=== PATIENT | male | born 1980 ===

== ENCOUNTER 2019-04-26 15:51 | Emergency (ER) | payer SELFPAY ==
--- NOTE | 2019-04-26 16:24 | Event Note ---
ED Screening Note Date of service: 04/26/19 Time: 16:20 ED Screening Note: 38 y o male presents to ED cc of vomitting, URI and lower back pain x 2 days This initial assessment/diagnostic orders/clinical plan/treatment(s) is/are subject to change based on patients health status, clinical progression and re- assessment by fellow clinical providers in the ED. Further treatment and workup at subsequent clinical providers discretion. Patient/guardian urged not to elope from the ED as their condition may be serious if not clinically assessed and managed. Initial orders include: ua,cxr
--- NOTE | 2019-04-26 17:01 | XRay Report ---
CHEST 2 VIEWS INDICATION / CLINICAL INFORMATION: cough. COMPARISON: None available. FINDINGS: SUPPORT DEVICES: None. HEART / MEDIASTINUM: No significant abnormality. LUNGS / PLEURA: No significant pulmonary or pleural abnormality. .No pneumothorax. ADDITIONAL FINDINGS: No significant additional findings. IMPRESSION: 1. No acute findings. Signer Name: Abiel Orourke MD Signed: 04/26/2019 4:56 PM Workstation Name: [id number]
[2019-04-26 17:30] LABS: Bilirubin,Urine NEG (Negative); Blood,Urine SM (Negative); Color,Urine Yellow (Yellow); Protein,Urine <15 mg/dL mg/dL (Negative); Urobilinogen,Urine < 2.0 mg/dL (<2.0)
--- NOTE | 2019-04-26 17:39 | Emergency Department Report ---
Minor Respiratory - HPI Chief Complaint: Upper Respiratory Infection Stated Complaint: VOMITING/DROWSINESS/BACK PAIN Time Seen by Provider: 04/26/19 16:20 Duration: 3 Days Pain Location: Throat, Nose Severity: mild Minor Respiratory: Yes Rhinorrhea, Yes Able to Tolerate Fluids, No Sore Throat, No Ear Pain, No Cough, No Sick Contacts, No Hemoptysis, No Chest Pain, No Sh ortness of Breath, No Fever Other History: 38 yo otherwise healthy male to ER with runny nose and malaise. sent from work. denies n/v/d. asking for work note ED Review of Systems ROS: Stated complaint: VOMITING/DROWSINESS/BACK PAIN Other details as noted in HPI Comment: All other systems reviewed and negative ED Past Medical Hx - Past Medical History Previous Medical History?: No - Surgical History Past Surgical History?: No - Social History Smoking Status: Current Some Day Smoker - Medications Home Medications: Home Medications Medication Instructions Recorded Confirmed Last Taken Type Cetirizine HCl [ZyrTEC] 10 mg PO DAILY #30 capsule 04/26/19 Unknown Rx Fluticasone [Flonase] 1 spray NS QDAY #1 bottle 04/26/19 Unknown Rx predniSONE [Deltasone] 20 mg PO DAILY #5 tablet 04/26/19 Unknown Rx Minor Respiratory Exam - Exam General: Vital signs noted. No distress. Alert and acting appropriately. HEENT: Yes Pharyngeal Erythema, Yes Moist Mucous Membranes, Yes Rhinorrhea, No Pharyngeal Exudates, No Conjuctival Injection, No Frontal Tenderness, No Maxillary Tenderness Ear: Neither TM Bulge, Neither TM Erythema, Neither EAC Pain, Neither EAC Discharge Neck: Yes Supple, No Adenopathy Lungs: Yes Good Air Exchange, No Wheezes, No Ronchi Heart: Yes Regular Abdomen: No Tenderness Skin: No Rash Neurologic: Alert and oriented, no deficits. Musculoskeletal: Unremarkable. ED Course Vital Signs 04/26/19 16:19 Temperature 98.2 F Pulse Rate 79 Respiratory 18 Rate Blood Pressure 123/78 O2 Sat by Pulse 100 Oximetry ED Medical Decision Making - Radiology Data Radiology results: report reviewed, image reviewed - Medical Decision Making pt got ill at work they told him to go to ER he co runny nose and fatigue xray neg simple uri wants a note to go back to work tomorrow. vss no fever non toxic taking po ambulatory Vital Signs 04/26/19 16:19 Temperature 98.2 F Pulse Rate 79 Respiratory 18 Rate Blood Pressure 123/78 O2 Sat by Pulse 100 Oximetry Critical care attestation.: If time is entered above; I have spent that time in minutes in the direct care of this critically ill patient, excluding procedure time. ED Disposition Clinical Impression: Sinusitis Disposition: DC-01 TO HOME OR SELFCARE Is pt being admited?: No Does the pt Need Aspirin: No Condition: Stable Instructions: Sinusitis (ED) Additional Instructions: hydrate well with water motrin or tylenol for pain or aches meds as ordered today follow up pcp this week referral below Referrals: [facility] [Outside] - 3-5 Days Forms: Work/School Release Form(ED) Time of Disposition: 17:38
[2019-04-26 18:23] VITALS: BP 124/74
== END 2019-04-26 18:30 | disposition home or self-care (01) ==
LOC: ED 15:51
DX: J32.9 Chronic sinusitis, unspecified (principal); F17.200 Nicotine dependence, unspecified, uncomplicated; Z79.899 Other long term (current) drug therapy
CPT/HCPCS: 71046; 81001; 99283

== ENCOUNTER 2019-08-03 14:53 | Emergency (ER) | payer SELFPAY ==
[2019-08-03 15:22] VITALS: BP 123/74
--- NOTE | 2019-08-03 15:26 | Emergency Department Report ---
Blank Doc - Documentation Documentation: 38-year-old male that presents with right facial abscess. This initial assessment/diagnostic orders/clinical plan/treatment(s) is/are subject to change based on patient's health status, clinical progression and re- assessment by fellow clinical providers in the ED. Further treatment and workup at subsequent clinical providers discretion. Patient/guardians urged not to elope from the ED as their condition may be serious if not clinically assessed and managed. Initial orders include: 1- Patient sent to [facility] for further evaluation and treatment
[2019-08-03] MEDS ORDERED: LIDOCAINE-MPF (1%) 10 MG/1 ML VIAL 5 ML INFILTRATI ONE (17:30)
--- NOTE | 2019-08-03 17:30 | Emergency Department Report ---
Abscess Boil HPI - HPI Chief Complaint: Skin/Abscess/Foreign Body Stated Complaint: POSS SPIDER BITE ON R EAR Time Seen by Provider: 08/03/19 15:25 Duration: 2 Days Location: Other (face below right earlobe) Severity: Mild History: Yes Pain (2/10 at abscess site), Yes Previous History, No Fever, No Purulent Drainage, No Numbness, No Foreign Body, No Insect Bite HPI: This is 38-year-old male who reports that he has had redness and swelling to area just below her right earlobe 2 days that is painful at 2/10 and achy. He has had previous episode of different area. Denies any insect bite. Denies any fever or chills or nausea or vomiting. Denies any ear pain or sore throat. Denies any headache. Denies any medical history. Tetanus shot earlier this year in August [facility] Home Medications: Previous Rx's Medication Instructions Recorded Last Taken Type Cetirizine HCl [ZyrTEC] 10 mg PO DAILY #30 capsule 04/26/19 Unknown Rx Fluticasone [Flonase] 1 spray NS QDAY #1 bottle 04/26/19 Unknown Rx predniSONE [Deltasone] 20 mg PO DAILY #5 tablet 04/26/19 Unknown Rx Clindamycin [Clindamycin CAP] 300 mg PO Q8H 10 Days #30 cap 08/03/19 Unknown Rx Ibuprofen [Motrin] 800 mg PO Q8HR PRN #12 tablet 08/03/19 Unknown Rx Allergies/Adverse Reactions: Allergies Allergy/AdvReac Type Severity Reaction Status Date / Time No Known Allergies Allergy Unverified 04/26/19 15:54 ED Review of Systems ROS: Stated complaint: POSS SPIDER BITE ON R EAR Other details as noted in HPI Constitutional: denies: chills, fever ENT: denies: ear pain, throat pain, congestion Respiratory: denies: cough, shortness of breath Cardiovascular: denies: chest pain, palpitations Musculoskeletal: denies: back pain, joint swelling, arthralgia Skin: other (Red/swelling below her right earlobe) Neurological: denies: headache, numbness, paresthesias, abnormal gait, vertigo ED Past Medical Hx - Past Medical History Previous Medical History?: No - Surgical History Past Surgical History?: Yes - Family History Family history: hypertension - Social History Smoking Status: Current Every Day Smoker Substance Use Type: None - Medications Home Medications: Home Medications Medication Instructions Recorded Confirmed Last Taken Type Cetirizine HCl [ZyrTEC] 10 mg PO DAILY #30 capsule 04/26/19 Unknown Rx Fluticasone [Flonase] 1 spray NS QDAY #1 bottle 04/26/19 Unknown Rx predniSONE [Deltasone] 20 mg PO DAILY #5 tablet 04/26/19 Unknown Rx Clindamycin [Clindamycin CAP] 300 mg PO Q8H 10 Days #30 cap 08/03/19 Unknown Rx Ibuprofen [Motrin] 800 mg PO Q8HR PRN #12 tablet 08/03/19 Unknown Rx ED Abscess Boil Physical Exam - Exam General: Vital signs noted. No distress. Alert and acting appropriately. Front/Back of Body, Lg (Color): 1 - Patient with redness, indurated area approximately 1 cm, round no right e arlobe. Tender to palpate with no drainage. Some fluctuance areas other areas without fluctuance. Size: 1 cm Exam: Yes Tenderness, Yes Fluctuance, Yes Surrounding Cellulites/Erythema, Yes Heart Murmur (Regular), Yes Normal Neurologic Exam (alert and oriented 3 normal gait. GCS of 15), Yes Normal Circulation (No cce. + 2 pulses in all extremiti es, no neurovascular compromise), No Lymphangitis Exam: Ear: Bilateral EAC and TM with normal exam. No foreign body noted and bilateral mastoid bone without any tenderness I & D Note - I & D Note I & D Note: Incision and drainage procedure. 1 cm abscess cellulitic area below her right earlobe. Area drained. Area cleansed with iodine, followed by normal saline, 1 mL 1% lidocaine instilled in the area. #18-gauge needle used to create open in the middle of abscess and moderate amount of puslike drainage that was thick drainage from site. Patient with minimal injury to the area. He tolerated procedure well. Area cleansed with normal saline and sterile Josephine simply subside. Immunizations up-to-date ED Course Vital Signs 08/03/19 15:20 Temperature 98.2 F Pulse Rate 81 Respiratory 18 Rate Blood Pressure 123/74 O2 Sat by Pulse 100 Oximetry - Reevaluation(s) Reevaluation #1: 08/03/19 18:21 See procedure note for incision and drainage Critical care attestation.: If time is entered above; I have spent that time in minutes in the direct care of this critically ill patient, excluding procedure time. ED Medical Decision Making - Medical Decision Making Patient here with cellulitic abscess to the facial area below the right earlobe. Please see procedure note for incision and drainage. Patient stable in no acute distress and tolerated procedure well. I instructed patient to apply warm compresses 3-4 times a day to soften remaining pus and facilitate draining and he voiced understanding. I instructed him if he developed fever and no chills, increased redness and swelling to affected area to return to the emergency room otherwise follow-up with his primary care physician in 2 days. He voiced un derstanding. Patient discharged home with prescription for Motrin and clindamycin. ED Disposition Clinical Impression: Cellulitis and abscess of face, Encounter for incision and drainage procedure Disposition: TO HOME OR SELFCARE Is pt being admited?: No Does the pt Need Aspirin: No Condition: Stable Instructions: Abscess Incision and Drainage (ED), Cellulitis (ED), Heat Pack Application (ED) Additional Instructions: Please apply warm compresses to affected area 3-4 times a day to facilitate s oftening and drainage if remaining pus Take antibiotic as prescribed Motrin for pain and/or fever but please take this medication with food as he can cause irritation to stomach lining If Condition worsens to include fever, chills, increased redness and swelling with pain to affected area, please return to emergency room GIA otherwise follow-up with primary care physician in 2 days keep affected area clean and dry Referrals: [facility] [Outside] - 08/05/19 Forms: Accompanied Note, Work/School Release Form(ED)
[2019-08-03] MEDS ORDERED: LOSARTAN 50 MG TAB ONE (18:18)
== END 2019-08-03 18:42 | disposition home or self-care (01) ==
LOC: ED 14:53
DX: H60.01 Abscess of right external ear (principal); H60.11 Cellulitis of right external ear
CPT/HCPCS: 99282

== ENCOUNTER 2019-11-25 13:28 | Emergency (ER) | payer BC ==
[2019-11-25 13:43] VITALS: BP 114/77
--- NOTE | 2019-11-25 13:44 | Emergency Department Report ---
HPI - General Chief Complaint: Allergic Reaction Time Seen by Provider: 11/25/19 13:42 - HPI HPI: dx: allergic rhinitis itchy eyes, runny nose, no fever no cough ED Past Medical Hx - Past Medical History Previous Medical History?: No - Surgical History Past Surgical History?: No - Social History Smoking Status: Current Every Day Smoker Substance Use Type: None - Medications Home Medications: Home Medications Medication Instructions Recorded Confirmed Last Taken Type Cetirizine HCl [ZyrTEC] 10 mg PO DAILY #30 capsule 04/26/19 Unknown Rx Fluticasone [Flonase] 1 spray NS QDAY #1 bottle 04/26/19 Unknown Rx predniSONE [Deltasone] 20 mg PO DAILY #5 tablet 04/26/19 Unknown Rx Clindamycin [Clindamycin CAP] 300 mg PO Q8H 10 Days #30 cap 08/03/19 Unknown Rx Ibuprofen [Motrin] 800 mg PO Q8HR PRN #12 tablet 08/03/19 Unknown Rx ED Review of Systems ROS: Stated complaint: ALLERGIES Other details as noted in HPI Critical care attestation.: If time is entered above; I have spent that time in minutes in the direct care of this critically ill patient, excluding procedure time. ED Disposition Clinical Impression: Encounter for medical screening examination Disposition: MED SCREENING EXAM-LEFT Is pt being admited?: No Does the pt Need Aspirin: No Condition: Stable Forms: Work/School Release Form(ED)
== END 2019-11-25 14:00 | disposition left against medical advice (07) ==
LOC: ED 13:28
DX: J30.9 Allergic rhinitis, unspecified (principal); F17.200 Nicotine dependence, unspecified, uncomplicated
CPT/HCPCS: 99282

== ENCOUNTER 2020-04-30 15:56 | Emergency (ER) | payer BC ==
[2020-04-30 16:59] VITALS: BP 112/74
--- NOTE | 2020-04-30 18:22 | Emergency Department Report ---
Chief Complaint: Nausea/Vomiting/Diarrhea Stated Complaint: DIZZY Time Seen by Provider: 04/30/20 18:14 - HPI History of Present Illness: This is a 39-year-old male with no prior medical condition who presents the ED today complaining of 2 days of feeling nauseated after finding out that his girlfriend was . Patient states that he thinks that is been transferred over to him. Patient states he was at work today when he felt really nauseated and left work. He denies abdominal pain, fever, vomiting, diarrhea, chest pain, shortness of breath or any other symptoms. - ROS Review of Systems: as noted in HPI - Exam Vital Signs: Vital Signs 04/30/20 16:56 Temperature 98 F Pulse Rate 73 Respiratory 18 Rate Blood Pressure 112/74 [Right] O2 Sat by Pulse 99 Oximetry Physical Exam: GENERAL: Alert and oriented x3, no apparent distress, Normal Gait, atraumatic. HEAD: Head is normocephalic and a-traumatic. EYES: Extra ocular muscles are intact. Pupils are equal, round, and reactive to light and accommodation. MOUTH:Mouth is well hydrated and without lesions. Tonsils nonerythematous or swollen, Uvula midline, Tongue not elevated. Mucous membranes are moist. Posterior pharynx clear, no exudate or lesions. Patent airways. SKIN: Warm and dry, No lesions, No ulceration or induration present. MSE screening note: Focused history and physical exam performed. Due to findings the following was ordered: ED Medical Decision Making - Medical Decision Making 39-year-old male presents with nausea. Discussed with patient is not a medical emergency and patient is to follow-up with primary care physician. Discussed with patient that he may take juventino products as needed for Vital signs are normal patient is in no acute distress. ED Disposition for MSE Clinical Impression: Nausea Disposition: Z-07 MED SCREENING EXAM-LEFT Is pt being admited?: No Does the pt Need Aspirin: No Condition: Stable Instructions: Acute Nausea and Vomiting (ED) Additional Instructions: Make sure to follow up with the primary care physician as discussed. Take Dramamine [id number] for nausea or motion sickness. You may also take juventino products for nausea. If you have any worsening symptoms or develop new symptoms please return to ED immediately. Referrals: [facility] [Outside] - 3-5 Days [facility] [Outside] - 3-5 Days Forms: Work/School Release Form(ED) Time of Disposition: 18:40
== END 2020-04-30 18:56 | disposition left against medical advice (07) ==
LOC: ED 15:56
DX: R10.2 Pelvic and perineal pain (principal); Z53.21 Procedure and treatment not carried out due to patient leaving prior to being seen by health care provider